=== PATIENT | female | born 1975 | race Caucasian/White ===

== ENCOUNTER 2018-12-24 08:56 | Emergency (ER) | payer OTHER ==
[~2018-12-24] VITALS: Ht 162.6 cm; Wt 63.5 kg
[2018-12-24] MEDS ORDERED: SYNTHROID100 MC1 PO (09:13)
[2018-12-24] MEDS ORDERED: WELLBUTRIN SR150 MG PO (09:14)
[2018-12-24] MEDS ORDERED: ADDERALL XR 2020 MG PO (09:14)
[2018-12-24] MEDS ORDERED: IRON (09:14)
[2018-12-24] MEDS ORDERED: B12INJ IM (09:14)
[2018-12-24] MEDS ORDERED: HYDROCODONE-AP1 EAC6 PO (11:06)
[2018-12-24 11:30] VITALS: BP 140/83
== END 2018-12-24 11:31 | disposition home or self-care (01) ==
LOC: M.ERS 08:56
DX: S89.091A Other physeal fracture of upper end of right tibia, initial encounter for closed fracture (principal); E03.9 Hypothyroidism, unspecified; Z98.84 Bariatric surgery status; X58.XXXA Exposure to other specified factors, initial encounter; Y93.72 Activity, wrestling; Y92.89 Other specified places as the place of occurrence of the external cause; Y99.8 Other external cause status

== ENCOUNTER → 2018-12-28 | Outpatient (CLI) | payer OTHER ==
[~2018-12-28] MED LIST: ADDERALL XR 2020 MG PO; B12INJ IM; HYDROCODONE-AP1 EAC6 PO; IRON; SYNTHROID100 MC1 PO; WELLBUTRIN SR150 MG PO
== END ==
LOC: M.CT 13:23
DX: S83.203A Other tear of unspecified meniscus, current injury, right knee, initial encounter (principal); S82.191A Other fracture of upper end of right tibia, initial encounter for closed fracture; M25.461 Effusion, right knee; X58.XXXA Exposure to other specified factors, initial encounter; Y93.89 Activity, other specified; Y92.89 Other specified places as the place of occurrence of the external cause; Y99.8 Other external cause status

== ENCOUNTER → 2019-01-13 | Outpatient (CLI) | payer OTHER | LOC: M.RAD 08:37 | DX: S82.191A Other fracture of upper end of right tibia, initial encounter for closed fracture (principal); S83.203A Other tear of unspecified meniscus, current injury, right knee, initial encounter; M25.461 Effusion, right knee; X58.XXXA Exposure to other specified factors, initial encounter; Y93.89 Activity, other specified; Y92.89 Other specified places as the place of occurrence of the external cause; Y99.8 Other external cause status ==

== ENCOUNTER → 2019-01-17 | Outpatient (CLI) | payer OTHER | LOC: M.RAD 09:07 | DX: M25.571 Pain in right ankle and joints of right foot (principal) ==